=== PATIENT | female | born 1950 | race African-American/Black ===

== ENCOUNTER 2018-03-26 06:29 | Observation (INO) ==
[2018-03-26] MEDS ORDERED: NITROGLYCERIN 2% OINT 1 INCH/GM PACK TOP STA (07:11)
[2018-03-26] MEDS ORDERED: ASPIRIN 325 MG TABLET PO STA (07:11)
[2018-03-26] MEDS ORDERED: ALUM/MAG/SIMETH/LIDO VISC 1:1 30 ML BOTTLE PO STA (07:11)
[2018-03-26] MEDS ORDERED: ONDANSETRON 4 MG/2 ML VIAL IV PRN ×2 (07:11→08:38)
[2018-03-26] MEDS ORDERED: ENOXAPARIN 100 MG/ML SYRINGE SUBCUT STA (07:11)
[2018-03-26 07:19] LABS: Basophils # 0.1 10*3/uL (0.0-0.2); Eosinophils # 0.2 10*3/uL (0.0-0.87); Eosinophils % 3.5 % (0.00-10.9); Hematocrit 36.2 VOL% (35.7-47.0); Hemoglobin 12.4 GM/DL (12.0-16.0); Immature Granulocytes % 0.2 %; Immature Granulocytes Absolute 0.01 #; Lymphocytes # 1.1 10*3/uL (1.4-4.0); Lymphocytes % 23.2 % (21.3-54.2); Mean Corpuscular HGB Conc 34.3 GM/DL (32-36); Mean Corpuscular Hemoglobin 33 PG (27-34); Mean Corpuscular Volume 95.8 FL (87-102); Mean Platelet Volume 10.6 FL (9.6-12.0); Monocytes # 0.4 10*3/uL (0.11-0.8); Monocytes % 8.2 % (1.7-12.7); Neutrophils # 3.1 10*3/uL (1.4-7.4); Neutrophils % 63.9 % (38.7-73.9); Platelet Count 185 T/CUMM (130-400); Red Blood Count 3.78 MC/CUMM (3.8-5.5); Red Cell Distribution Width 12.7 % (9.3-17.3); White Blood Count 4.9 T/CUMM (4-12)
[2018-03-26 07:24] LABS: PT Patient Result 10.3 SECS; Partial Thromboplastin Time 25.1 SECS (0-40)
[2018-03-26 07:39] LABS: Alanine Aminotransferase 30 U/L (13-56); Albumin 3.3 G/DL (3.4-5.0); Alkaline Phosphatase 128 U/L (45-117); Aspartate Amino Transferase 42 U/L (0-37); Bilirubin,Total < 0.39 MG/DL (0.2-1.0); Blood Urea Nitrogen 17 MG/DL (7-18); Calcium 8.1 MG/DL (8.5-10.1); Glucose 73 MG/DL (74-106); Osmolality,Calculated 288.7 MOS/KG (273-304); Potassium 3.9 MMOL/L (3.5-5.1); Sodium 145 MMOL/L (136-145); Total Protein 6.2 G/DL (6.4-8.3)
[2018-03-26 07:57] LABS: Apearance,Urine CLEAR (Clear); Bilirubin,Urine Negative (Negative); Blood, Urine Negative (Negative); Glucose,Urine (UA) Negative (Negative); Ketones,Urine Negative (Negative); Mucus,Urine Occasional /LPF (Occasional); Nitrite,Urine Negative (Negative); Protein,Urine Negative; RBC,Urine 1 /HPF (0-4); Squamous Epithelial Cell,Urine Occasional /HPF (0-10); Urine Color Yellow (Yellow); Urine Specific Gravity 1.016 (1.001-1.035); WBC,Urine 1 /HPF (0-6)
[2018-03-26] MEDS ORDERED: DEXTROSE 50% 25 GM/50 ML VIAL IV PRN (08:38)
[2018-03-26] MEDS ORDERED: ACETAMINOPHEN 325 MG TABLET PO PRN (08:38)
[2018-03-26] MEDS ORDERED: GLUCAGON 1 MG VIAL IM PRN (08:38)
[2018-03-26] MEDS: INSULIN LISPRO 100 UNIT/ML SUBCUT SCH ×3 (12:27→21:45)
[2018-03-27 03:54] LABS: Basophils % 0.8 % (0.0-0.8); Eosinophils # 0.1 10*3/uL (0.0-0.87); Eosinophils % 2.5 % (0.00-10.9); Hemoglobin 11.9 GM/DL (12.0-16.0); Immature Granulocytes % 0.2 %; Immature Granulocytes Absolute 0.01 #; Lymphocytes # 1.1 10*3/uL (1.4-4.0); Mean Corpuscular Hemoglobin 32 PG (27-34); Mean Corpuscular Volume 94.6 FL (87-102); Mean Platelet Volume 10.6 FL (9.6-12.0); Monocytes # 0.4 10*3/uL (0.11-0.8); Monocytes % 7.8 % (1.7-12.7); Neutrophils # 3.1 10*3/uL (1.4-7.4); Neutrophils % 64.7 % (38.7-73.9); Platelet Count 172 T/CUMM (130-400); Red Cell Distribution Width 12.4 % (9.3-17.3); White Blood Count 4.8 T/CUMM (4-12)
[2018-03-27 04:26] LABS: Albumin 2.9 G/DL (3.4-5.0); Calcium 7.7 MG/DL (8.5-10.1); Osmolality,Calculated 296.3 MOS/KG (273-304); Potassium 3.8 MMOL/L (3.5-5.1); Risk Ratio 2.12; Thyroid Stimulating Hormone 2.11 uIU/ml (0.358-3.74); Total Protein 5.4 G/DL (6.4-8.3); VLDL CHOLESTEROL 8.6 MG/DL
[2018-03-27] MEDS ORDERED: ENOXAPARIN 40 MG/0.4 ML SYRINGE SUBCUT SCH (07:00)
[2018-03-27] MEDS: INSULIN LISPRO 100 UNIT/ML SUBCUT SCH ×2 (07:45→11:46)
[2018-03-27 11:17] VITALS: BP 101/56
== END 2018-03-27 12:37 | disposition home or self-care (01) ==
LOC: N.ED 06:29 → N.2E 06:29 → N.EDINP 08:38 → N.TELENOUT 08:38 → N.2E 09:03 → N.2W 09:03 → UNDODEPER 09:25 → N.2W 09:25 → N.2E 09:25 → N.TELEN 10:41 → UNDODEPREF 03-27 15:13
PROVIDERS: ADMIT Hospitalist; ATTEND Hospitalist

== ENCOUNTER 2019-10-26 17:45 | Inpatient (IN) ==
[2019-10-26] MEDS ORDERED: DICYCLOMINE 20 MG/2 ML AMP IM ONE (18:41)
[2019-10-26] MEDS ORDERED: METOCLOPRAMIDE 10 MG/2 ML VIAL IV STA (18:41)
[2019-10-26] MEDS ORDERED: ACETAMINOPHEN 500 MG TABLET PO STA (18:41)
[2019-10-26 19:42] LABS: Basophils % 0.3 % (0.0-0.8); Eosinophils % 0.1 % (0.00-10.9); Hematocrit 38.1 VOL% (35.7-47.0); Hemoglobin 12.5 GM/DL (12.0-16.0); Immature Granulocytes % 0.3 %; Immature Granulocytes Absolute 0.04 #; Lymphocytes # 0.5 10*3/uL (1.4-4.0); Lymphocytes % 4.2 % (21.3-54.2); Mean Corpuscular HGB Conc 32.8 GM/DL (32-36); Mean Corpuscular Volume 97.2 FL (87-102); Mean Platelet Volume 9.8 FL (9.6-12.0); Monocytes % 5.6 % (1.7-12.7); Neutrophils % 89.5 % (38.7-73.9); Platelet Count 204 T/CUMM (130-400); Red Blood Count 3.92 MC/CUMM (3.8-5.5); Red Cell Distribution Width 12.5 % (9.3-17.3); White Blood Count 11.7 T/CUMM (4-12)
[2019-10-26 20:01] LABS: Apearance,Urine CLEAR (Clear); Bilirubin,Urine Negative (Negative); Blood, Urine Negative (Negative); Glucose,Urine (UA) Negative (Negative); Hyaline Casts,Urine 1 /LPF (0-3); Ketones,Urine 5 mg/dL (Negative); Mucus,Urine Occasional /LPF (Occasional); Nitrite,Urine Negative (Negative); Protein,Urine Negative; RBC,Urine 3 /HPF (0-4); Urine Color Yellow (Yellow); Urine Specific Gravity 1.016 (1.001-1.035); Urine Urobilinogen < 2.0 EU/DL (0.2-1.0); WBC,Urine <1 /HPF (0-6)
[2019-10-26 20:05] LABS: Alanine Aminotransferase 31 U/L (13-56); Albumin 3.2 G/DL (3.4-5.0); Alkaline Phosphatase 125 U/L (45-117); Amylase 395 U/L (25-115); Aspartate Amino Transferase 32 U/L (0-37); Bilirubin,Total < 0.39 MG/DL (0.2-1.0); Blood Urea Nitrogen 16 MG/DL (7-18); Calcium 7.8 MG/DL (8.5-10.1); Estimated Glom Filtration Rate 78 ML/MIN; Glucose 130 MG/DL (74-106); Osmolality,Calculated 283.3 MOS/KG (273-304); Total Protein 6.2 G/DL (6.4-8.3)
[2019-10-26 20:07] LABS: Lymphocytes 5 % (20-55); Platelet Estimate Adequate; Segmented Neutrophils 90 % (50-85); Total Cells Counted 100
[2019-10-26] MEDS ORDERED: ONDANSETRON 4 MG/2 ML VIAL IV PRN (22:49)
[2019-10-26] MEDS ORDERED: ACETAMINOPHEN 325 MG TABLET PO PRN (22:49)
[2019-10-27] MEDS: DEXTROSE 5% LACTATED RINGERS 1,000 ML IV SCH ×4 (00:48→22:31)
[2019-10-27 04:27] LABS: Apearance,Urine CLEAR (Clear); Bilirubin,Urine Negative (Negative); Blood, Urine Negative (Negative); Glucose,Urine (UA) Negative (Negative); Ketones,Urine Negative (Negative); Nitrite,Urine Negative (Negative); Protein,Urine Negative; RBC,Urine 2 /HPF (0-4); Urine Color Straw (Yellow); Urine Specific Gravity 1.026 (1.001-1.035); Urine Urobilinogen < 2.0 EU/DL (0.2-1.0); WBC,Urine 1 /HPF (0-6)
[2019-10-27 04:50] LABS: Basophils % 0.5 % (0.0-0.8); Eosinophils # 0.1 10*3/uL (0.0-0.87); Eosinophils % 2.1 % (0.00-10.9); Hematocrit 37.4 VOL% (35.7-47.0); Hemoglobin 12.4 GM/DL (12.0-16.0); Immature Granulocytes % 0.2 %; Immature Granulocytes Absolute 0.01 #; Lymphocytes # 1.2 10*3/uL (1.4-4.0); Lymphocytes % 20.3 % (21.3-54.2); Mean Corpuscular HGB Conc 33.2 GM/DL (32-36); Mean Corpuscular Volume 95.4 FL (87-102); Mean Platelet Volume 10.1 FL (9.6-12.0); Neutrophils % 65.9 % (38.7-73.9); Platelet Count 202 T/CUMM (130-400); Red Blood Count 3.92 MC/CUMM (3.8-5.5); Red Cell Distribution Width 12.6 % (9.3-17.3); White Blood Count 6.1 T/CUMM (4-12)
[2019-10-27 05:20] LABS: Albumin 2.8 G/DL (3.4-5.0); Bilirubin,Total 0.4 MG/DL (0.2-1.0); Calcium 7.9 MG/DL (8.5-10.1); Total Protein 5.8 G/DL (6.4-8.3)
[2019-10-27] MEDS: PANTOPRAZOLE 40 MG TABLET PO SCH (09:02)
[2019-10-27] MEDS ORDERED: MINERAL OIL ENEMA 133 ML BOTTLE RECTAL ONE (09:36)
[2019-10-27] MEDS: POTASSIUM CHLORIDE RIDER 10 MEQ in PREMIX 1 EACH IV SCH ×4 (10:28→16:08)
[2019-10-28 07:41] LABS: Basophils % 0.7 % (0.0-0.8); Eosinophils # 0.1 10*3/uL (0.0-0.87); Hematocrit 37.5 VOL% (35.7-47.0); Hemoglobin 12.7 GM/DL (12.0-16.0); Immature Granulocytes % 0.2 %; Immature Granulocytes Absolute 0.01 #; Lymphocytes # 1.1 10*3/uL (1.4-4.0); Lymphocytes % 27.2 % (21.3-54.2); Mean Corpuscular HGB Conc 33.9 GM/DL (32-36); Mean Corpuscular Volume 94.7 FL (87-102); Mean Platelet Volume 10.3 FL (9.6-12.0); Monocytes % 9.2 % (1.7-12.7); Neutrophils % 59.7 % (38.7-73.9); Platelet Count 195 T/CUMM (130-400); Red Blood Count 3.96 MC/CUMM (3.8-5.5); Red Cell Distribution Width 12.3 % (9.3-17.3)
[2019-10-28 07:53] LABS: Calcium 8.4 MG/DL (8.5-10.1)
[2019-10-28] MEDS ORDERED: POLYETHYLENE GLYCOL POWDER 17 GM PACK PO SCH ×2 (09:00→10:00)
[2019-10-28] MEDS ORDERED: TEMAZEPAM 15 MG CAPSULE PO PRN (09:25)
[2019-10-28] MEDS ORDERED: MOMETASONE/FORMOTEROL 100-5 INHALER 8.8 GM INH PRN (09:25)
[2019-10-28] MEDS ORDERED: AMIODARONE 200 MG TABLET PO SCH (09:30)
[2019-10-28] MEDS ORDERED: ASPIRIN EC 81 MG TABLET PO SCH (09:30)
[2019-10-28] MEDS ORDERED: SODIUM PHOSPHATE ENEMA 133 ML BOTTLE RECTAL ONE (09:41)
[2019-10-28] MEDS: PANTOPRAZOLE 40 MG TABLET PO SCH (10:45)
[2019-10-28] MEDS: HEPARIN 5,000 UNIT/1 ML VIAL SUBCUT SCH ×2 (10:51→17:31)
[2019-10-28] MEDS ORDERED: FUROSEMIDE 40 MG TABLET PO SCH (16:00)
[2019-10-28 16:36] VITALS: BP 153/77
[2019-10-28] MEDS: DEXTROSE 5% LACTATED RINGERS 1,000 ML IV SCH (17:30)
[2019-10-28] MEDS ORDERED: cloNIDine 0.1 MG TABLET PO SCH (21:00)
[2019-10-28] MEDS ORDERED: PHENYTOIN ER 100 MG CAPSULE PO SCH (21:00)
== END 2019-10-28 17:43 | disposition home or self-care (01) | DRG 388 ==
LOC: EDUNIT# → EDBD → N.ED 17:45 → N.EDINP 22:49 → N.3E 23:58
PROVIDERS: ADMIT Student in an Organized Health Care Education/Training Program; ATTEND Student in an Organized Health Care Education/Training Program

== ENCOUNTER 2019-11-25 23:51 | Inpatient (IN) ==
[2019-11-26] MEDS ORDERED: ONDANSETRON 4 MG/2 ML VIAL IV STA (00:26)
[2019-11-26] MEDS ORDERED: SODIUM CHLORIDE 0.9% 1,000 ML IV STA (00:26)
[2019-11-26 00:35] LABS: Basophils % 0.3 % (0.0-0.8); Eosinophils % 0.1 % (0.00-10.9); Hematocrit 43.7 VOL% (35.7-47.0); Hemoglobin 14.4 GM/DL (12.0-16.0); Immature Granulocytes % 0.4 %; Immature Granulocytes Absolute 0.05 #; Lymphocytes # 0.6 10*3/uL (1.4-4.0); Lymphocytes % 4.5 % (21.3-54.2); Mean Corpuscular Volume 95.2 FL (87-102); Mean Platelet Volume 9.9 FL (9.6-12.0); Monocytes % 5.4 % (1.7-12.7); Neutrophils % 89.3 % (38.7-73.9); Platelet Count 209 T/CUMM (130-400); Red Blood Count 4.59 MC/CUMM (3.8-5.5); Red Cell Distribution Width 12.6 % (9.3-17.3); White Blood Count 13.4 T/CUMM (4-12)
[2019-11-26] MEDS ORDERED: fentaNYL 100 MCG/2 ML VIAL IV STA (00:52)
[2019-11-26] MEDS ORDERED: PANTOPRAZOLE 40 MG VIAL IV STA (00:59)
[2019-11-26 01:05] LABS: Alanine Aminotransferase 29 U/L (13-56); Albumin 3.7 G/DL (3.4-5.0); Alkaline Phosphatase 147 U/L (45-117); Aspartate Amino Transferase 36 U/L (0-37); Bilirubin,Total < 0.39 MG/DL (0.2-1.0); Blood Urea Nitrogen 16 MG/DL (7-18); Calcium 9.1 MG/DL (8.5-10.1); Estimated Glom Filtration Rate 75 ML/MIN; Glucose 182 MG/DL (74-106); Osmolality,Calculated 284.4 MOS/KG (273-304); Total Protein 7.5 G/DL (6.4-8.3)
[2019-11-26] MEDS ORDERED: hydrALAZINE 20 MG/1 ML VIAL IV STA (01:29)
[2019-11-26] MEDS ORDERED: cloNIDine 0.1 MG/24 HR PATCH TRANSDERM STA (01:32)
[2019-11-26] MEDS ORDERED: ONDANSETRON 4 MG/2 ML VIAL IV PRN (03:51)
[2019-11-26] MEDS: DEXTROSE 5% NACL 0.45% 1,000 ML IV SCH ×3 (04:32→23:54)
[2019-11-26] MEDS: MEPERIDINE 50 MG/1 ML VIAL IV SCH ×7 (04:32→23:55)
[2019-11-26] MEDS: LEVOFLOXACIN INJ 750 MG in PREMIX 1 EACH IV SCH (04:35)
[2019-11-26 04:44] LABS: Lymphocytes 4 % (20-55); Segmented Neutrophils 91 % (50-85)
[2019-11-26 04:45] LABS: Platelet Estimate Normal; Total Cells Counted 100
[2019-11-26] MEDS: metroNIDAZOLE INJ 500 MG in PREMIX 1 EACH IV SCH ×3 (06:22→20:59)
[2019-11-26 08:01] LABS: Basophils % 0.2 % (0.0-0.8); Hematocrit 39.3 VOL% (35.7-47.0); Immature Granulocytes % 0.2 %; Immature Granulocytes Absolute 0.02 #; Lymphocytes # 0.4 10*3/uL (1.4-4.0); Lymphocytes % 3.7 % (21.3-54.2); Mean Corpuscular HGB Conc 33.1 GM/DL (32-36); Mean Corpuscular Volume 94.2 FL (87-102); Mean Platelet Volume 10.4 FL (9.6-12.0); Monocytes % 12.6 % (1.7-12.7); Neutrophils % 83.3 % (38.7-73.9); Platelet Count 188 T/CUMM (130-400); Red Blood Count 4.17 MC/CUMM (3.8-5.5); Red Cell Distribution Width 12.8 % (9.3-17.3); White Blood Count 10.2 T/CUMM (4-12)
[2019-11-26 08:19] LABS: Calcium 8.4 MG/DL (8.5-10.1); Osmolality,Calculated 281.3 MOS/KG (273-304)
[2019-11-26 08:27] LABS: Band Neutrophils 2 % (0-10); Eosinophils 1 % (0-10); Hypochromasia 1+; Lymphocytes 3 % (20-55); Segmented Neutrophils 85 % (50-85); Total Cells Counted 100
[2019-11-26 08:28] LABS: Microcytosis 1+; Ovalocytes Slight; Platelet Estimate Adequate
[2019-11-26] MEDS: PANTOPRAZOLE 40 MG VIAL IV SCH (08:54)
[2019-11-26 13:05] LABS: Apearance,Urine CLEAR (Clear); Bilirubin,Urine Negative (Negative); Blood, Urine Negative (Negative); Glucose,Urine (UA) 50 mg/dL (Negative); Hyaline Casts,Urine 3 /LPF (0-3); Ketones,Urine Negative (Negative); Mucus,Urine Occasional /LPF (Occasional); Nitrite,Urine Negative (Negative); Protein,Urine Negative; RBC,Urine 8 /HPF (0-4); Squamous Epithelial Cell,Urine Occasional /HPF (0-10); Urine Color Yellow (Yellow); Urine Specific Gravity 1.015 (1.001-1.035); Urine Urobilinogen < 2.0 EU/DL (0.2-1.0); WBC,Urine 1 /HPF (0-6)
[2019-11-27] MEDS: LEVOFLOXACIN INJ 750 MG in PREMIX 1 EACH IV SCH (03:37)
[2019-11-27] MEDS: MEPERIDINE 50 MG/1 ML VIAL IV SCH ×8 (03:41→23:43)
[2019-11-27] MEDS: metroNIDAZOLE INJ 500 MG in PREMIX 1 EACH IV SCH (05:13)
[2019-11-27] MEDS: DEXTROSE 5% NACL 0.45% 1,000 ML IV SCH ×3 (05:21→12:46)
[2019-11-27 09:23] LABS: Basophils % 0.5 % (0.0-0.8); Eosinophils # 0.1 10*3/uL (0.0-0.87); Eosinophils % 2.1 % (0.00-10.9); Hematocrit 39.1 VOL% (35.7-47.0); Hemoglobin 12.7 GM/DL (12.0-16.0); Immature Granulocytes % 0.2 %; Immature Granulocytes Absolute 0.01 #; Lymphocytes # 1.2 10*3/uL (1.4-4.0); Lymphocytes % 21.1 % (21.3-54.2); Mean Corpuscular HGB Conc 32.5 GM/DL (32-36); Mean Corpuscular Volume 96.8 FL (87-102); Mean Platelet Volume 9.9 FL (9.6-12.0); Monocytes % 8.8 % (1.7-12.7); Neutrophils % 67.3 % (38.7-73.9); Platelet Count 173 T/CUMM (130-400); Red Blood Count 4.04 MC/CUMM (3.8-5.5); Red Cell Distribution Width 12.6 % (9.3-17.3); White Blood Count 5.7 T/CUMM (4-12)
[2019-11-27] MEDS: PANTOPRAZOLE 40 MG VIAL IV SCH (09:53)
[2019-11-27 10:10] LABS: Calcium 8.3 MG/DL (8.5-10.1); Osmolality,Calculated 281.1 MOS/KG (273-304)
[2019-11-27] MEDS ORDERED: TEMAZEPAM 15 MG CAPSULE PO PRN (12:03)
[2019-11-27] MEDS ORDERED: MOMETASONE/FORMOTEROL 100-5 INHALER 8.8 GM INH PRN (12:03)
[2019-11-27] MEDS ORDERED: NITROGLYCERIN SL 0.4 MG TABLET SL PRN (12:03)
[2019-11-27] MEDS ORDERED: LATANOPROST 0.005% OPH SOLN 2.5 ML BOTTLE BOTH EYES SCH (21:00)
[2019-11-27] MEDS ORDERED: PHENYTOIN ER 100 MG CAPSULE PO SCH (21:00)
[2019-11-27] MEDS ORDERED: ATORVASTATIN 10 MG TABLET PO SCH (21:00)
[2019-11-27] MEDS: FUROSEMIDE 40 MG TABLET PO SCH (22:29)
[2019-11-27] MEDS: cloNIDine 0.1 MG TABLET PO SCH (22:30)
[2019-11-27] MEDS: POTASSIUM CHLORIDE 10 MEQ TABLET PO SCH (22:30)
[2019-11-28] MEDS: DEXTROSE 5% NACL 0.45% 1,000 ML IV SCH (01:11)
[2019-11-28] MEDS: MEPERIDINE 50 MG/1 ML VIAL IV SCH ×4 (03:06→10:10)
[2019-11-28] MEDS: cloNIDine 0.1 MG TABLET PO SCH (08:27)
[2019-11-28] MEDS: FUROSEMIDE 40 MG TABLET PO SCH (08:27)
[2019-11-28] MEDS: PANTOPRAZOLE 40 MG VIAL IV SCH (08:27)
[2019-11-28] MEDS: POTASSIUM CHLORIDE 10 MEQ TABLET PO SCH (08:27)
[2019-11-28] MEDS ORDERED: AMIODARONE 200 MG TABLET PO SCH (09:00)
[2019-11-28] MEDS ORDERED: ASPIRIN EC 81 MG TABLET PO SCH (09:00)
[2019-11-28 11:29] VITALS: BP 112/66
== END 2019-11-28 13:40 | disposition home or self-care (01) | DRG 390 ==
LOC: EDUNIT# → EDBD → N.ED 23:51 → N.EDINP 11-26 01:19 → N.TELES 11-26 03:55
PROVIDERS: ADMIT Student in an Organized Health Care Education/Training Program; ATTEND Student in an Organized Health Care Education/Training Program

== ENCOUNTER 2020-02-02 17:13 | Inpatient (IN) ==
[2020-02-02] MEDS ORDERED: ONDANSETRON 4 MG/2 ML VIAL ONE (17:16)
[2020-02-02] MEDS ORDERED: SODIUM CHLORIDE 0.9% 1,000 ML IV STA (17:23)
[2020-02-02] MEDS ORDERED: ONDANSETRON 4 MG/2 ML VIAL IV STA (17:23)
[2020-02-02 17:40] LABS: Basophils # 0.1 10*3/uL (0.0-0.2); Basophils % 0.5 % (0.0-0.8); Eosinophils # 0.1 10*3/uL (0.0-0.87); Eosinophils % 0.6 % (0.00-10.9); Hematocrit 40.1 VOL% (35.7-47.0); Immature Granulocytes % 0.4 %; Immature Granulocytes Absolute 0.05 #; Mean Corpuscular HGB Conc 32.4 GM/DL (32-36); Mean Platelet Volume 9.9 FL (9.6-12.0); Neutrophils % 86.5 % (38.7-73.9); Platelet Count 212 T/CUMM (130-400); Red Blood Count 4.22 MC/CUMM (3.8-5.5); Red Cell Distribution Width 13.1 % (9.3-17.3); White Blood Count 14.2 T/CUMM (4-12)
[2020-02-02] MEDS ORDERED: HYDROmorphone 2 MG/1 ML VIAL ONE (17:43)
[2020-02-02] MEDS ORDERED: HYDROmorphone 2 MG/1 ML VIAL IV STA (17:58)
[2020-02-02 18:22] LABS: Albumin 3.8 G/DL (3.4-5.0); Bilirubin,Total 0.5 MG/DL (0.2-1.0); Calcium 8.3 MG/DL (8.5-10.1); Total Protein 6.8 G/DL (6.4-8.3)
[2020-02-02] MEDS ORDERED: diphenhydrAMINE 50 MG/1 ML VIAL IV STA (18:42)
[2020-02-02] MEDS ORDERED: POTASSIUM CHLORIDE RIDER 20 MEQ in PREMIX 1 EACH IV STA ×2 (18:43→18:45)
[2020-02-02 18:56] LABS: Apearance,Urine CLEAR (Clear); Bacteria,Urine Occasional /HPF (Few); Bilirubin,Urine Negative (Negative); Blood, Urine Negative (Negative); Glucose,Urine (UA) Negative (Negative); Hyaline Casts,Urine 32 /LPF (0-3); Ketones,Urine Negative (Negative); Mucus,Urine Occasional /LPF (Occasional); Nitrite,Urine Negative (Negative); Protein,Urine Negative; RBC,Urine 1 /HPF (0-4); Urine Color Yellow (Yellow); Urine Specific Gravity 1.011 (1.001-1.035); Urine Urobilinogen < 2.0 EU/DL (0.2-1.0); WBC,Urine <1 /HPF (0-6)
[2020-02-02] MEDS ORDERED: ONDANSETRON 4 MG/2 ML VIAL IV PRN (22:47)
[2020-02-02] MEDS ORDERED: ACETAMINOPHEN 325 MG TABLET PO PRN (22:47)
[2020-02-02] MEDS: DEXTROSE 5% NACL 0.45% 1,000 ML IV SCH (23:30)
[2020-02-02] MEDS: cefOXitin 2,000 MG in SYRINGE 1 EACH IV SCH (23:46)
[2020-02-03] MEDS: cefOXitin 2,000 MG in SYRINGE 1 EACH IV SCH ×4 (04:51→23:31)
[2020-02-03 07:22] LABS: Basophils % 0.3 % (0.0-0.8); Eosinophils % 0.2 % (0.00-10.9); Hematocrit 39.8 VOL% (35.7-47.0); Hemoglobin 12.9 GM/DL (12.0-16.0); Immature Granulocytes % 0.2 %; Immature Granulocytes Absolute 0.01 #; Lymphocytes # 0.4 10*3/uL (1.4-4.0); Lymphocytes % 6.2 % (21.3-54.2); Mean Corpuscular HGB Conc 32.4 GM/DL (32-36); Mean Corpuscular Volume 95.7 FL (87-102); Mean Platelet Volume 10.2 FL (9.6-12.0); Monocytes % 11.1 % (1.7-12.7); Platelet Count 218 T/CUMM (130-400); Red Blood Count 4.16 MC/CUMM (3.8-5.5); Red Cell Distribution Width 13.3 % (9.3-17.3); White Blood Count 6.3 T/CUMM (4-12)
[2020-02-03 07:25] LABS: Calcium 7.7 MG/DL (8.5-10.1); Osmolality,Calculated 276.7 MOS/KG (273-304)
[2020-02-03 07:41] LABS: Band Neutrophils 3 % (0-10); Hypochromasia 1+; Lymphocytes 8 % (20-55); Microcytosis 1+; Platelet Estimate Adequate; Segmented Neutrophils 76 % (50-85); Total Cells Counted 100
[2020-02-03 07:42] LABS: Ovalocytes Slight
[2020-02-03] MEDS: DEXTROSE 5% NACL 0.45% 1,000 ML IV SCH (08:38)
[2020-02-03] MEDS ORDERED: TEMAZEPAM 15 MG CAPSULE PO PRN (09:47)
[2020-02-03] MEDS ORDERED: BUDESONIDE/FORMOTEROL 160-4.5 INHALER 6 GM INH PRN (09:47)
[2020-02-03] MEDS ORDERED: NITROGLYCERIN SL 0.4 MG TABLET SL PRN (09:47)
[2020-02-03] MEDS: PANTOPRAZOLE 40 MG TABLET PO SCH (11:06)
[2020-02-03] MEDS: ENOXAPARIN 40 MG/0.4 ML SYRINGE SUBCUT SCH (13:16)
[2020-02-03] MEDS ORDERED: CYCLOBENZAPRINE 10 MG TABLET PO PRN (21:00)
[2020-02-03] MEDS ORDERED: MOMETASONE/FORMOTEROL 100-5 INHALER 8.8 GM INH SCH (21:00)
[2020-02-03] MEDS: cloNIDine 0.1 MG TABLET PO SCH (21:49)
[2020-02-03] MEDS: PHENYTOIN ER 100 MG CAPSULE PO SCH (21:49)
[2020-02-04] MEDS: cefOXitin 2,000 MG in SYRINGE 1 EACH IV SCH ×4 (05:20→23:09)
[2020-02-04 05:32] LABS: Basophils % 0.5 % (0.0-0.8); Eosinophils # 0.2 10*3/uL (0.0-0.87); Eosinophils % 4.4 % (0.00-10.9); Hematocrit 34.7 VOL% (35.7-47.0); Hemoglobin 11.5 GM/DL (12.0-16.0); Lymphocytes % 18.3 % (21.3-54.2); Mean Corpuscular HGB Conc 33.1 GM/DL (32-36); Mean Corpuscular Volume 93.8 FL (87-102); Mean Platelet Volume 10.2 FL (9.6-12.0); Monocytes % 11.5 % (1.7-12.7); Neutrophils % 65.3 % (38.7-73.9); Platelet Count 166 T/CUMM (130-400); Red Cell Distribution Width 13.2 % (9.3-17.3); White Blood Count 5.5 T/CUMM (4-12)
[2020-02-04 05:37] LABS: INR 1.1; PT Patient Result 12.1 SECS (9.8-11.9)
[2020-02-04 06:02] LABS: Eosinophils 4 % (0-10); Hypochromasia 1+; Lymphocytes 17 % (20-55); Microcytosis 1+; Ovalocytes Slight; Platelet Estimate Adequate; Segmented Neutrophils 77 % (50-85); Total Cells Counted 100
[2020-02-04 06:12] LABS: Albumin 2.5 G/DL (3.4-5.0); Bilirubin,Total 2.1 MG/DL (0.2-1.0); Calcium 7.8 MG/DL (8.5-10.1); Osmolality,Calculated 284.8 MOS/KG (273-304); Total Protein 5.5 G/DL (6.4-8.3)
[2020-02-04] MEDS: AMIODARONE 200 MG TABLET PO SCH (10:00)
[2020-02-04] MEDS: ASPIRIN EC 81 MG TABLET PO SCH (10:00)
[2020-02-04] MEDS: cloNIDine 0.1 MG TABLET PO SCH ×2 (10:00→20:36)
[2020-02-04] MEDS: PANTOPRAZOLE 40 MG TABLET PO SCH (10:01)
[2020-02-04] MEDS: DEXTROSE 5% NACL 0.45% 1,000 ML IV SCH ×4 (10:03→23:09)
[2020-02-04] MEDS: ENOXAPARIN 40 MG/0.4 ML SYRINGE SUBCUT SCH (13:03)
[2020-02-04] MEDS: PHENYTOIN ER 100 MG CAPSULE PO SCH (20:35)
[2020-02-05] MEDS: cefOXitin 2,000 MG in SYRINGE 1 EACH IV SCH ×4 (04:11→22:40)
[2020-02-05 05:40] LABS: Basophils % 0.7 % (0.0-0.8); Eosinophils # 0.2 10*3/uL (0.0-0.87); Hematocrit 35.2 VOL% (35.7-47.0); Hemoglobin 11.3 GM/DL (12.0-16.0); Immature Granulocytes % 0.2 %; Immature Granulocytes Absolute 0.01 #; Lymphocytes % 18.2 % (21.3-54.2); Mean Corpuscular HGB Conc 32.1 GM/DL (32-36); Mean Corpuscular Volume 95.9 FL (87-102); Mean Platelet Volume 10.3 FL (9.6-12.0); Monocytes % 9.3 % (1.7-12.7); Neutrophils % 67.6 % (38.7-73.9); Platelet Count 171 T/CUMM (130-400); Red Blood Count 3.67 MC/CUMM (3.8-5.5); Red Cell Distribution Width 13.2 % (9.3-17.3); White Blood Count 5.5 T/CUMM (4-12)
[2020-02-05 06:11] LABS: Albumin 2.6 G/DL (3.4-5.0); Bilirubin,Total 0.9 MG/DL (0.2-1.0); Calcium 7.9 MG/DL (8.5-10.1); Osmolality,Calculated 284.7 MOS/KG (273-304); Total Protein 5.6 G/DL (6.4-8.3)
[2020-02-05] MEDS: cloNIDine 0.1 MG TABLET PO SCH ×2 (08:05→21:41)
[2020-02-05] MEDS: PANTOPRAZOLE 40 MG TABLET PO SCH (08:05)
[2020-02-05] MEDS: ASPIRIN EC 81 MG TABLET PO SCH (08:05)
[2020-02-05] MEDS: AMIODARONE 200 MG TABLET PO SCH (08:06)
[2020-02-05] MEDS: DEXTROSE 5% NACL 0.45% 1,000 ML IV SCH ×3 (08:06→21:43)
[2020-02-05] MEDS: ENOXAPARIN 40 MG/0.4 ML SYRINGE SUBCUT SCH (13:54)
[2020-02-05] MEDS: PHENYTOIN ER 100 MG CAPSULE PO SCH (21:40)
[2020-02-06] MEDS: DEXTROSE 5% NACL 0.45% 1,000 ML IV SCH ×2 (00:19→06:07)
[2020-02-06] MEDS: cefOXitin 2,000 MG in SYRINGE 1 EACH IV SCH (06:05)
[2020-02-06] MEDS: PANTOPRAZOLE 40 MG TABLET PO SCH (08:56)
[2020-02-06] MEDS: cloNIDine 0.1 MG TABLET PO SCH (08:56)
[2020-02-06] MEDS: ASPIRIN EC 81 MG TABLET PO SCH (08:56)
[2020-02-06] MEDS: AMIODARONE 200 MG TABLET PO SCH (08:56)
[2020-02-06 11:32] VITALS: BP 133/78
[2020-02-06] MEDS: ENOXAPARIN 40 MG/0.4 ML SYRINGE SUBCUT SCH (13:50)
== END 2020-02-06 16:00 | disposition home or self-care (01) | DRG 390 ==
LOC: N.ED 17:13 → N.EDINP 22:47 → N.3E 02-03 03:10
PROVIDERS: ADMIT Surgery; ATTEND Surgery

== ENCOUNTER 2020-11-23 21:56 | Inpatient (IN) ==
[2020-11-23] MEDS ORDERED: ONDANSETRON 4 MG/2 ML VIAL IV STA (22:14)
[2020-11-23] MEDS ORDERED: SODIUM CHLORIDE 0.9% 1,000 ML IV STA (22:14)
[2020-11-23 22:28] LABS: Basophils # 0.1 10*3/uL (0.0-0.2); Basophils % 0.5 % (0.0-0.8); Eosinophils # 0.2 10*3/uL (0.0-0.87); Eosinophils % 1.6 % (0.00-10.9); Hematocrit 37.7 VOL% (35.7-47.0); Hemoglobin 11.9 GM/DL (12.0-16.0); Immature Granulocytes % 0.4 %; Immature Granulocytes Absolute 0.04 #; Lymphocytes # 1.4 10*3/uL (1.4-4.0); Lymphocytes % 12.8 % (21.3-54.2); Mean Corpuscular HGB Conc 31.6 GM/DL (32-36); Mean Corpuscular Volume 91.5 FL (87-102); Mean Platelet Volume 10.9 FL (9.6-12.0); Monocytes % 6.7 % (1.7-12.7); Platelet Count 178 T/CUMM (130-400); Red Blood Count 4.12 MC/CUMM (3.8-5.5); Red Cell Distribution Width 14.5 % (9.3-17.3); White Blood Count 10.5 T/CUMM (4-12)
[2020-11-23 22:44] LABS: INR 2.3
[2020-11-23 22:49] LABS: Alanine Aminotransferase 28 U/L (13-56); Albumin 3.4 G/DL (3.4-5.0); Alkaline Phosphatase 126 U/L (45-117); Aspartate Amino Transferase 39 U/L (0-37); Blood Urea Nitrogen 17 MG/DL (7-18); Calcium 8.2 MG/DL (8.5-10.1); Carbon Dioxide 22 MMOL/L (21-32); Estimated Glom Filtration Rate 87 ML/MIN; Glucose 206 MG/DL (74-106); Osmolality,Calculated 288.3 MOS/KG (273-304); Potassium 3.5 MMOL/L (3.5-5.1); Sodium 141 MMOL/L (136-145); Total Protein 6.8 G/DL (6.4-8.2)
[2020-11-23 23:57] LABS: Bilirubin,Urine Negative (Negative); Blood, Urine Negative (Negative); Glucose,Urine (UA) >=500 mg/dL (Negative); Hyaline Casts,Urine 1 /LPF (0-3); Ketones,Urine Negative (Negative); Mucus,Urine Occasional /LPF (Occasional); Nitrite,Urine Negative (Negative); Protein,Urine Negative; RBC,Urine 1 /HPF (0-4); Squamous Epithelial Cell,Urine Occasional /HPF (0-10); Urine Appearance CLEAR (Clear); Urine Color Straw (Yellow); Urine Specific Gravity 1.021 (1.001-1.035); Urine Urobilinogen < 2.0 EU/DL (0.2-1.0)
[2020-11-23] MEDS ORDERED: HYDROmorphone 2 MG/1 ML VIAL ONE (23:57)
[2020-11-24] MEDS ORDERED: HYDROmorphone 2 MG/1 ML VIAL IV STA (00:04)
[2020-11-24] MEDS ORDERED: SODIUM CHLORIDE 0.9% 1,000 ML IV STA (00:21)
[2020-11-24] MEDS ORDERED: ONDANSETRON 4 MG/2 ML VIAL IV PRN (00:23)
[2020-11-24] MEDS ORDERED: ACETAMINOPHEN 325 MG TABLET PO PRN (00:23)
[2020-11-24] MEDS ORDERED: HYDROmorphone 2 MG/1 ML VIAL IV PRN (00:25)
[2020-11-24] MEDS ORDERED: hydrALAZINE 20 MG/1 ML VIAL IV PRN (00:28)
[2020-11-24] MEDS ORDERED: METOPROLOL TARTRATE 5 MG/5 ML VIAL IV ONE (00:52)
[2020-11-24] MEDS: LACTATED RINGERS 1,000 ML IV SCH ×3 (01:00→22:27)
[2020-11-24 05:53] LABS: Basophils % 0.2 % (0.0-0.8); Hematocrit 40.7 VOL% (35.7-47.0); Hemoglobin 12.8 GM/DL (12.0-16.0); Immature Granulocytes % 0.5 %; Immature Granulocytes Absolute 0.06 #; Lymphocytes # 0.4 10*3/uL (1.4-4.0); Lymphocytes % 3.2 % (21.3-54.2); Mean Corpuscular HGB Conc 31.4 GM/DL (32-36); Mean Corpuscular Volume 92.5 FL (87-102); Mean Platelet Volume 10.3 FL (9.6-12.0); Monocytes % 4.2 % (1.7-12.7); Neutrophils % 91.9 % (38.7-73.9); Platelet Count 226 T/CUMM (130-400); Red Cell Distribution Width 14.5 % (9.3-17.3); White Blood Count 12.5 T/CUMM (4-12)
[2020-11-24] MEDS ORDERED: LACTATED RINGERS 1,000 ML IV ONE (06:04)
[2020-11-24 06:23] LABS: Band Neutrophils 1 % (0-10); Eosinophils 1 % (0-10); Lymphocytes 3 % (20-55); Segmented Neutrophils 91 % (50-85); Total Cells Counted 100
[2020-11-24 06:24] LABS: Acanthocytes Few; Hypochromasia 1+; Microcytosis 1+; Ovalocytes Few; Platelet Estimate Normal
[2020-11-24 06:28] LABS: Alanine Aminotransferase 30 U/L (13-56); Albumin 3.7 G/DL (3.4-5.0); Alkaline Phosphatase 134 U/L (45-117); Aspartate Amino Transferase 35 U/L (0-37); Bilirubin,Total < 0.39 MG/DL (0.2-1.0); Blood Urea Nitrogen 14 MG/DL (7-18); Calcium 8.2 MG/DL (8.5-10.1); Carbon Dioxide 25 MMOL/L (21-32); Estimated Glom Filtration Rate 87 ML/MIN; Glucose 146 MG/DL (74-106); Osmolality,Calculated 286.1 MOS/KG (273-304); Potassium 3.7 MMOL/L (3.5-5.1); Sodium 142 MMOL/L (136-145); Total Protein 7.2 G/DL (6.4-8.2)
[2020-11-24] MEDS ORDERED: PANTOPRAZOLE 40 MG TABLET PO SCH (09:00)
[2020-11-24] MEDS ORDERED: cloNIDine 0.1 MG TABLET NG SCH (21:00)
[2020-11-24] MEDS ORDERED: LATANOPROST 0.005% OPH SOLN 2.5 ML BOTTLE BOTH EYES SCH (21:00)
[2020-11-24] MEDS ORDERED: POTASSIUM CHLORIDE 20 MEQ/15 ML UDCUP PER TUBE SCH (21:00)
[2020-11-24] MEDS ORDERED: PHENYTOIN 100 MG/4 ML UDCUP NG ONE (21:00)
[2020-11-24] MEDS ORDERED: PHENYTOIN 100 MG/4 ML UDCUP NG SCH (21:00)
[2020-11-24] MEDS ORDERED: LACTULOSE 20 GM/30 ML UDCUP PO SCH (21:00)
[2020-11-24] MEDS: FUROSEMIDE 20 MG TABLET NG SCH (21:39)
[2020-11-24] MEDS: SUCRALFATE 1 GM/10 ML UDCUP NG SCH (21:40)
[2020-11-24] MEDS: AMIODARONE 200 MG TABLET NG SCH (21:50)
[2020-11-24] MEDS: LACTULOSE 20 GM/30 ML UDCUP NG SCH (21:50)
[2020-11-25] MEDS: SUCRALFATE 1 GM/10 ML UDCUP NG SCH (05:14)
[2020-11-25] MEDS ORDERED: OMEPRAZOLE ODT 20 MG TABLET NG SCH ×2 (09:00)
[2020-11-25] MEDS: FUROSEMIDE 20 MG TABLET NG SCH (09:55)
[2020-11-25] MEDS: AMIODARONE 200 MG TABLET NG SCH (09:56)
[2020-11-25] MEDS: LACTULOSE 20 GM/30 ML UDCUP NG SCH (09:56)
[2020-11-25] MEDS ORDERED: POTASSIUM CHLORIDE 20 MEQ/15 ML UDCUP PO SCH (10:00)
[2020-11-25 14:07] VITALS: BP 157/74
== END 2020-11-25 14:30 | disposition home or self-care (01) | DRG 389 ==
LOC: EDBD → EDUNIT# → N.ED 21:56 → N.EDINP 11-24 00:23 → N.OB 11-24 10:05
PROVIDERS: ADMIT Surgery; ATTEND Surgery

== ENCOUNTER 2021-12-12 12:34 | Observation (INO) ==
[2021-12-12] MEDS ORDERED: SODIUM CHLORIDE 0.9% 1,000 ML IV STA (13:24)
[2021-12-12 13:40] LABS: Basophils # 0.1 10*3/uL (0.0-0.2); Basophils % 1.2 % (0.0-0.8); Eosinophils # 0.1 10*3/uL (0.0-0.87); Eosinophils % 1.7 % (0.00-10.9); Hemoglobin 6.8 GM/DL (12.0-16.0); Immature Granulocytes % 0.3 %; Immature Granulocytes Absolute 0.02 #; Lymphocytes # 1.2 10*3/uL (1.4-4.0); Lymphocytes % 19.8 % (21.3-54.2); Mean Corpuscular HGB Conc 29.6 GM/DL (32-36); Mean Corpuscular Volume 83.9 FL (87-102); Mean Platelet Volume 9.6 FL (9.6-12.0); Monocytes # 0.6 10*3/uL (0.11-0.8); Monocytes % 9.9 % (1.7-12.7); Neutrophils % 67.1 % (38.7-73.9); Platelet Count 427 T/CUMM (130-400); Red Blood Count 2.74 MC/CUMM (3.8-5.5); Red Cell Distribution Width 16.5 % (9.3-17.3); White Blood Count 5.9 T/CUMM (4-12)
[2021-12-12 14:01] LABS: Albumin 3.5 G/DL (3.4-5.0); Bilirubin,Total 0.4 MG/DL (0.20-1.00); Calcium 8.4 MG/DL (8.5-10.1); Osmolality,Calculated 282.3 MOS/KG (273-304); Potassium 3.5 MMOL/L (3.5-5.1); Total Protein 6.6 G/DL (6.4-8.2)
[2021-12-12] MEDS ORDERED: ONDANSETRON 4 MG/2 ML VIAL IV PRN (16:49)
[2021-12-12] MEDS ORDERED: GLUCAGON 1 MG VIAL IM PRN ×2 (16:49→17:16)
[2021-12-12] MEDS ORDERED: SODIUM CHLORIDE 0.9% 1,000 ML IV PRN (16:57)
[2021-12-12] MEDS ORDERED: hydrALAZINE 20 MG/1 ML VIAL IV PRN (17:01)
[2021-12-12] MEDS ORDERED: DEXTROSE 10% 250 ML BAG IV PRN ×2 (17:04→17:19)
[2021-12-12] MEDS: INSULIN LISPRO 100 UNIT/ML SUBCUT SCH (21:00)
[2021-12-12] MEDS: PANTOPRAZOLE 40 MG VIAL IV SCH (22:28)
[2021-12-12] MEDS: AMIODARONE 200 MG TABLET PO SCH (22:28)
[2021-12-12] MEDS: PHENYTOIN ER 100 MG CAPSULE PO SCH (22:29)
[2021-12-13 06:11] LABS: Basophils # 0.1 10*3/uL (0.0-0.2); Basophils % 1.1 % (0.0-0.8); Eosinophils # 0.1 10*3/uL (0.0-0.87); Eosinophils % 2.3 % (0.00-10.9); Hematocrit 23.7 VOL% (35.7-47.0); Hemoglobin 7.1 GM/DL (12.0-16.0); Immature Granulocytes % 0.5 %; Immature Granulocytes Absolute 0.02 #; Lymphocytes # 0.9 10*3/uL (1.4-4.0); Lymphocytes % 20.9 % (21.3-54.2); Mean Corpuscular Volume 83.7 FL (87-102); Mean Platelet Volume 9.7 FL (9.6-12.0); Monocytes # 0.4 10*3/uL (0.11-0.8); Monocytes % 8.6 % (1.7-12.7); Neutrophils % 66.6 % (38.7-73.9); Platelet Count 399 T/CUMM (130-400); Red Blood Count 2.83 MC/CUMM (3.8-5.5); Red Cell Distribution Width 15.9 % (9.3-17.3); White Blood Count 4.4 T/CUMM (4-12)
[2021-12-13 07:03] LABS: Bilirubin,Total 1.3 MG/DL (0.20-1.00); Calcium 8.3 MG/DL (8.5-10.1); Osmolality,Calculated 286.7 MOS/KG (273-304); Potassium 3.6 MMOL/L (3.5-5.1); Total Protein 5.8 G/DL (6.4-8.2)
[2021-12-13] MEDS: AMIODARONE 200 MG TABLET PO SCH ×2 (08:58→21:39)
[2021-12-13] MEDS: INSULIN LISPRO 100 UNIT/ML SUBCUT SCH ×4 (09:19→21:39)
[2021-12-13] MEDS: PANTOPRAZOLE 40 MG VIAL IV SCH ×2 (10:55→21:34)
[2021-12-13] MEDS: SODIUM CHLORIDE 0.9% 1,000 ML IV SCH (13:01)
[2021-12-13 19:49] LABS: Hematocrit 27.5 VOL% (35.7-47.0); Hemoglobin 8.4 GM/DL (12.0-16.0)
[2021-12-13] MEDS: PHENYTOIN ER 100 MG CAPSULE PO SCH (21:38)
[2021-12-14 08:14] LABS: Basophils # 0.1 10*3/uL (0.0-0.2); Basophils % 1.4 % (0.0-0.8); Eosinophils # 0.1 10*3/uL (0.0-0.87); Eosinophils % 3.2 % (0.00-10.9); Hematocrit 26.4 VOL% (35.7-47.0); Immature Granulocytes % 0.2 %; Immature Granulocytes Absolute 0.01 #; Lymphocytes # 0.8 10*3/uL (1.4-4.0); Lymphocytes % 18.6 % (21.3-54.2); Mean Corpuscular HGB Conc 30.3 GM/DL (32-36); Mean Corpuscular Volume 83.8 FL (87-102); Mean Platelet Volume 9.6 FL (9.6-12.0); Monocytes # 0.5 10*3/uL (0.11-0.8); Monocytes % 10.3 % (1.7-12.7); Neutrophils % 66.3 % (38.7-73.9); Platelet Count 283 T/CUMM (130-400); Red Blood Count 3.15 MC/CUMM (3.8-5.5); White Blood Count 4.4 T/CUMM (4-12)
[2021-12-14 08:38] LABS: Calcium 7.9 MG/DL (8.5-10.1); Osmolality,Calculated 284.8 MOS/KG (273-304); Potassium 3.9 MMOL/L (3.5-5.1)
[2021-12-14] MEDS: INSULIN LISPRO 100 UNIT/ML SUBCUT SCH ×3 (08:45→17:04)
[2021-12-14] MEDS: AMIODARONE 200 MG TABLET PO SCH ×2 (10:06→20:54)
[2021-12-14] MEDS: PANTOPRAZOLE 40 MG VIAL IV SCH ×2 (11:40→20:54)
[2021-12-14] MEDS: SODIUM CHLORIDE 0.9% 1,000 ML IV SCH ×2 (12:35→14:33)
[2021-12-14] MEDS: LACTATED RINGERS 1,000 ML IV SCH (13:18)
[2021-12-14] MEDS ORDERED: LIDOCAINE 2% 5 ML VIAL ONE (13:21)
[2021-12-14] MEDS ORDERED: propofoL 200 MG/20 ML VIAL IV ONE (13:21)
[2021-12-14] MEDS ORDERED: BISACODYL 5 MG TABLET PO ONE (15:00)
[2021-12-14] MEDS ORDERED: POLYETHYLENE GLYCOL POWDER 255 GM BOTTLE PO ONE (18:00)
[2021-12-14] MEDS: PHENYTOIN ER 100 MG CAPSULE PO SCH (20:54)
[2021-12-15] MEDS: INSULIN LISPRO 100 UNIT/ML SUBCUT SCH ×3 (01:18→12:00)
[2021-12-15] MEDS ORDERED: POLYETHYLENE GLYCOL POWDER 255 GM BOTTLE PO ONE (05:00)
[2021-12-15 06:02] LABS: Basophils # 0.1 10*3/uL (0.0-0.2); Basophils % 1.2 % (0.0-0.8); Eosinophils # 0.1 10*3/uL (0.0-0.87); Eosinophils % 3.3 % (0.00-10.9); Hematocrit 27.4 VOL% (35.7-47.0); Hemoglobin 8.3 GM/DL (12.0-16.0); Immature Granulocytes % 0.5 %; Immature Granulocytes Absolute 0.02 #; Lymphocytes % 23.2 % (21.3-54.2); Mean Corpuscular HGB Conc 30.3 GM/DL (32-36); Mean Platelet Volume 9.6 FL (9.6-12.0); Monocytes # 0.4 10*3/uL (0.11-0.8); Monocytes % 10.3 % (1.7-12.7); Neutrophils % 61.5 % (38.7-73.9); Platelet Count 409 T/CUMM (130-400); Red Blood Count 3.26 MC/CUMM (3.8-5.5); Red Cell Distribution Width 16.2 % (9.3-17.3); White Blood Count 4.3 T/CUMM (4-12)
[2021-12-15 06:11] LABS: PT Patient Result 11.2 SECS (10.5-12.0)
[2021-12-15 06:14] LABS: Osmolality,Calculated 287.6 MOS/KG (273-304); Potassium 3.5 MMOL/L (3.5-5.1)
[2021-12-15] MEDS: SODIUM CHLORIDE 0.9% 1,000 ML IV SCH (07:00)
[2021-12-15] MEDS ORDERED: LACTATED RINGERS 1,000 ML IV SCH (08:00)
[2021-12-15] MEDS: AMIODARONE 200 MG TABLET PO SCH (09:19)
[2021-12-15] MEDS: PANTOPRAZOLE 40 MG VIAL IV SCH (09:19)
[2021-12-15] MEDS: LACTATED RINGERS 1,000 ML IV SCH (09:19)
[2021-12-15] MEDS ORDERED: LIDOCAINE 2% 5 ML VIAL ONE (14:19)
[2021-12-15] MEDS ORDERED: propofoL 200 MG/20 ML VIAL IV ONE (14:19)
[2021-12-15 14:57] VITALS: BP 123/74
== END 2021-12-15 18:47 | disposition home health service (06) ==
LOC: N.ED 12:34 → INTOOBSV 16:49 → SUATTDRO 16:49 → N.EDINP 16:49 → N.TELES 18:18
PROVIDERS: ADMIT Family Medicine; ATTEND Internal Medicine